=== PATIENT | male | born 1980 ===

== ENCOUNTER → 2020-12-16 09:25 | Outpatient (CLI) | payer OTHER ==
[~2020-12-16 09:25] MED LIST: COLACE100 MG PO; DICLOFENAC POTA50 MG PO; PERCOCET 5-3251 EACH PO; SIMVASTATIN10 MG PO; SYNTHROID125 MCG PO; ZESTORETIC 10-1 EACH PO
== END | disposition home or self-care (01) ==
LOC: LAB 09:25
PROVIDERS: ATTEND Colon & Rectal Surgery
DX: Z11.59 Encounter for screening for other viral diseases (principal)

== ENCOUNTER 2020-12-23 10:15 | Day surgery (SDC) | payer OTHER ==
[~2020-12-23 10:15] MED LIST changes: -COLACE100 MG PO; -DICLOFENAC POTA50 MG PO; -PERCOCET 5-3251 EACH PO
[2020-12-23] MEDS ORDERED: COLACE100 MG PO (13:30)
[2020-12-23] MEDS ORDERED: PERCOCET 5-3251 EACH PO (13:30)
== END 2020-12-23 20:10 | disposition home or self-care (01) ==
LOC: CIR.AMB 10:15
PROVIDERS: ATTEND Surgery
DX: K60.1 Chronic anal fissure (principal); K62.4 Stenosis of anus and rectum; Z20.822 Contact with and (suspected) exposure to COVID-19

== ENCOUNTER 2020-12-27 19:49 | Inpatient (IN) | payer OTHER ==
[~2020-12-27] VITALS: Ht 177.8 cm; Wt 97.5 kg
[~2020-12-27 19:49] MED LIST changes: +COLACE100 MG PO; +PERCOCET 5-3251 EACH PO
[2020-12-28] MEDS ORDERED: DICLOFENAC POTA50 MG PO (17:19)
== END 2020-12-28 17:51 | disposition home or self-care (01) | DRG 389 ==
LOC: ER 19:49 → MEDJ 12-28 10:17 → SEC-K 12-28 10:17 → MEDJ 12-28 12:58
PROVIDERS: ADMIT Surgery; ATTEND Surgery
DX: K56.41 Fecal impaction (principal); K62.5 Hemorrhage of anus and rectum